=== PATIENT | male | born 1980 | race American Indian/Alaskan Native ===

== ENCOUNTER 2018-04-28 08:28 | Emergency (ER) | payer SELFPAY ==
[2018-04-28 08:39] VITALS: BP 122/77
[2018-04-28 09:08] LABS: Basophils % (Auto) 0.6 % (0.0-1.8); Eosinophils # (Auto) 0.5 K/mm3 (0.0-0.4); Eosinophils % (Auto) 9.4 % (0.0-4.3); Hematocrit 34.4 % (35.5-45.6); Hemoglobin 11.3 gm/dl (11.8-15.2); Lymphocytes # (Auto) 1.5 K/mm3 (1.2-5.4); Lymphocytes % (Auto) 27.3 % (13.4-35.0); Mean Corpuscular HGB Conc 33 % (32-34); Mean Corpuscular Hemoglobin 29 pg (28-32); Mean Corpuscular Volume 88 fl (84-94); Monocytes # (Auto) 0.6 K/mm3 (0.0-0.8); Monocytes % (Auto) 10.9 % (0.0-7.3); Platelet Count 250 K/mm3 (140-440); Red Blood Count 3.93 M/mm3 (3.65-5.03); Red Cell Distribution Width 13.5 % (13.2-15.2)
[2018-04-28 09:19] LABS: BUN/Creatinine Ratio 11; Blood Urea Nitrogen 8 mg/dL (9-20); Calcium 9.2 mg/dL (8.4-10.2); Hemolysis Index 6
[2018-04-28] MEDS ORDERED: CATAPRES PO ONE (09:21)
--- NOTE | 2018-04-28 09:25 | Emergency Department Report ---
ED Psych HPI - General Chief Complaint: Medical Clearance Stated Complaint: OPIOID WITHDRAWLS Time Seen by Provider: 04/28/18 09:13 Source: patient Mode of arrival: Ambulatory - History of Present Illness Initial Comments: Mr. Choi is a healthy 37-year-old who has used heroin for the past year. He is now withdrawing from heroin. His last use of heroin 1 day ago. He registered with the methadone clinic. First appointment is in 5 days. He requests methadone or any other medications to help him through his withdrawal symptoms. He has mild stomach ache. +diarrhea. He has body aches. He denies fever. Denies headache. Denies chest pain. No other symptoms. Associated Psychiatric Symptoms: none - Related Data Allergies Allergy/AdvReac Type Severity Reaction Status Date / Time No Known Allergies Allergy Unverified 04/28/18 08:42 ED Review of Systems ROS: Stated complaint: OPIOID WITHDRAWLS Other details as noted in HPI Comment: All other systems reviewed and negative Constitutional: denies: fever, malaise Respiratory: denies: cough Cardiovascular: denies: chest pain ED Past Medical Hx - Past Medical History Previous Medical History?: No - Surgical History Past Surgical History?: No - Social History Smoking Status: Current Every Day Smoker Substance Use Type: Other ED Physical Exam - General Limitations: No Limitations General appearance: alert, in no apparent distress - Head Head exam: Present: atraumatic, normocephalic - Eye Eye exam: Present: normal appearance - ENT ENT exam: Present: mucous membranes moist - Neck Neck exam: Present: normal inspection - Respiratory Respiratory exam: Present: normal lung sounds bilaterally. Absent: respiratory distress, wheezes, rales, rhonchi - Cardiovascular Cardiovascular Exam: Present: regular rate, normal rhythm. Absent: systolic murmur, diastolic murmur, rubs, gallop - GI/Abdominal GI/Abdominal exam: Present: soft, normal bowel sounds. Absent: distended, tenderness, guarding, rebound - Rectal Rectal exam: Present: deferred - Extremities Exam Extremities exam: Present: normal inspection - Back Exam Back exam: Present: normal inspection - Neurological Exam Neurological exam: Present: alert, oriented X3 - Psychiatric Psychiatric exam: Present: normal affect, normal mood. Absent: depressed, agitated, anxious, flat affect, manic - Skin Skin exam: Present: warm, dry, intact, normal color. Absent: rash ED Course Vital Signs 04/28/18 08:33 Temperature 98.4 F Pulse Rate 53 L Respiratory 16 Rate Blood Pressure 122/77 O2 Sat by Pulse 100 Oximetry ED Medical Decision Making - Lab Data Result diagrams: 04/28/18 08:56 04/28/18 08:56 Laboratory Results - last 24 hr 04/28/18 04/28/18 04/28/18 08:56 08:56 08:56 WBC RBC Hgb Hct MCV MCH MCHC RDW Plt Count Lymph % (Auto) [place] % (Auto) Eos % (Auto) Baso % (Auto) Lymph # [place] # Eos # Baso # Seg Neutrophils % Seg Neutrophils # Sodium 141 Potassium 3.7 Chloride 103.4 Carbon Dioxide 28 Anion Gap 13 BUN 8 L Creatinine 0.7 L Estimated GFR > 60 BUN/Creatinine Ratio 11 Glucose 109 H Calcium 9.2 Salicylates < 0.3 L Plasma/Serum Alcohol < 0.01 04/28/18 08:56 WBC 5.4 RBC 3.93 Hgb 11.3 L Hct 34.4 L MCV 88 MCH 29 MCHC 33 RDW 13.5 Plt Count 250 Lymph % (Auto) 27.3 [place] % (Auto) 10.9 H Eos % (Auto) 9.4 H Baso % (Auto) 0.6 Lymph # 1.5 [place] # 0.6 Eos # 0.5 H Baso # 0.0 Seg Neutrophils % 51.8 Seg Neutrophils # 2.8 Sodium Potassium Chloride Carbon Dioxide Anion Gap BUN Creatinine Estimated GFR BUN/Creatinine Ratio Glucose Calcium Salicylates Plasma/Serum Alcohol Vital Signs - 24 hr 04/28/18 08:33 Temperature 98.4 F Pulse Rate 53 L Respiratory 16 Rate Blood Pressure 122/77 O2 Sat by Pulse 100 Oximetry - Medical Decision Making Mr. Choi presents with mild withdrawal symptoms. He appears well and comfortable. I have prescribed Clonidine 0.1 mg bid x 7 days. I have provided outpatient mental health referrals. Critical care attestation.: If time is entered above; I have spent that time in minutes in the direct care of this critically ill patient, excluding procedure time. ED Disposition Clinical Impression: Opioid withdrawal Disposition: DC-01 TO HOME OR SELFCARE Is pt being admited?: No Does the pt Need Aspirin: No Condition: Stable Instructions: Opioid Withdrawal (ED) [facility] - [facility] Forms: Work/School Release Form(ED) Time of Disposition: 09:25
== END 2018-04-28 09:32 | disposition home or self-care (01) ==
LOC: ED 08:28
DX: F11.23 Opioid dependence with withdrawal (principal); R10.9 Unspecified abdominal pain; R19.7 Diarrhea, unspecified; F17.200 Nicotine dependence, unspecified, uncomplicated
CPT/HCPCS: 36415; 80048; 85025; 99283; G0480; 80320